=== PATIENT | female | born 1980 | race Caucasian/White ===

== ENCOUNTER 2020-12-14 14:53 | Inpatient (IN) ==
[2020-12-14] MEDS: NS 0.9% 1000 ml BAG 1,000 ML IV SCH ×2 (15:30→22:59)
[2020-12-14] MEDS ORDERED: Ondansetron 4 mg VIAL 2 MG/ML 2 ml VIAL IV PRN (16:29)
[2020-12-15 07:19] LABS: ABS Monocytes 1.5 10^3/ul (0-0.8); ABS Neutrophils 14.6 10^3/ul (1.5-7.7); Eosinophil % 0.1 %; Hematocrit 32 % (35-47); Hemoglobin 10.8 g/dL (12.0-16.0); Lymphocyte % 5.9 %; Mean Corpuscular HGB Conc 34 g/dL (31-36); Mean Corpuscular Hemoglobin 33 pg (27-31); Mean Corpuscular Volume 96 fL (80-97); Mean Platelet Volume 7.9 fL (7.4-10.4); Platelet Count 192 10^3/uL (150-450); Red Blood Count 3.33 10^6 /uL (3.70-4.87); Red Cell Distribution Width 13 % (10-15); White Blood Count 17.2 10^3/uL (3.5-10.8)
[2020-12-15] MEDS: NS 0.9% 1000 ml BAG 1,000 ML IV SCH ×3 (07:30→23:26)
[2020-12-15 07:34] LABS: Calcium 7.6 mg/dL (8.6-10.3); EGFR African American 112.7 (>60); EGFR Non-African American 93.2 (>60); Potassium 4.1 mmol/L (3.5-5.0)
[2020-12-15] MEDS: Polyethylene Glycol 3350 17 GM PACKET PO SCH ×2 (12:38→21:21)
[2020-12-15] MEDS ORDERED: cefTRIAXone 1 gm/50 mL NS BAG 1 GM/50 ML BAG IVPB SCH (13:00)
[2020-12-16 06:44] LABS: ABS Lymphocytes 1.3 10^3/ul (1.0-4.8); ABS Monocytes 1.1 10^3/ul (0-0.8); ABS Neutrophils 9.6 10^3/ul (1.5-7.7); Eosinophil % 0.2 %; Hematocrit 30 % (35-47); Hemoglobin 10.1 g/dL (12.0-16.0); Lymphocyte % 10.7 %; Mean Corpuscular HGB Conc 33 g/dL (31-36); Mean Corpuscular Hemoglobin 32 pg (27-31); Mean Corpuscular Volume 97 fL (80-97); Platelet Count 191 10^3/uL (150-450); Red Blood Count 3.13 10^6 /uL (3.70-4.87); Red Cell Distribution Width 14 % (10-15); White Blood Count 12.1 10^3/uL (3.5-10.8)
[2020-12-16 06:58] LABS: Albumin 2.6 g/dL (3.2-5.2); Calcium 7.4 mg/dL (8.6-10.3); Potassium 3.9 mmol/L (3.5-5.0); Total Bilirubin 0.3 mg/dL (0.2-1.0)
[2020-12-16 07:04] LABS: Albumin/Globulin Ratio 1.2 (1-3); EGFR Non-African American 103.3 (>60); Globulin 2.2 g/dL (2-4); Total Protein 4.8 g/dL (6.4-8.9)
[2020-12-16] MEDS: NS 0.9% 1000 ml BAG 1,000 ML IV SCH ×2 (07:14→15:31)
[2020-12-16] MEDS ORDERED: cefTRIAXone 1 gm/50 mL NS BAG 1 GM/50 ML BAG IVPB SCH (09:00)
[2020-12-16] MEDS: Polyethylene Glycol 3350 17 GM PACKET PO SCH ×2 (09:45→20:38)
[2020-12-16] MEDS: Amoxicillin/Clavul 500/125 TAB (Augmentin 500 mg tab) PO SCH ×2 (13:28→20:24)
[2020-12-16 23:50] LABS: ABS Lymphocytes 1.1 10^3/ul (1.0-4.8); ABS Monocytes 0.9 10^3/ul (0-0.8); Eosinophil % 0.4 %; Hematocrit 30 % (35-47); Hemoglobin 10.2 g/dL (12.0-16.0); Lymphocyte % 10.8 %; Mean Corpuscular HGB Conc 34 g/dL (31-36); Mean Corpuscular Hemoglobin 33 pg (27-31); Mean Corpuscular Volume 95 fL (80-97); Mean Platelet Volume 8.3 fL (7.4-10.4); Platelet Count 212 10^3/uL (150-450); Red Blood Count 3.12 10^6 /uL (3.70-4.87); Red Cell Distribution Width 13 % (10-15); White Blood Count 10.1 10^3/uL (3.5-10.8)
[2020-12-17] MEDS: Polyethylene Glycol 3350 17 GM PACKET PO SCH ×2 (09:08→20:44)
[2020-12-18] MEDS: Polyethylene Glycol 3350 17 GM PACKET PO SCH ×2 (14:37→20:46)
[2020-12-18] MEDS ORDERED: cefTRIAXone 2 GM ADDV.VIAL 2 GM in NS 0.9% 100 ml BAG 100 ML IV ONE (21:15)
[2020-12-19] MEDS: Polyethylene Glycol 3350 17 GM PACKET PO SCH (07:57)
[2020-12-19 08:26] VITALS: BP 117/57
== END 2020-12-19 11:00 | disposition home or self-care (01) | DRG 833 ==
LOC: MCHOBOUT 14:53 → MCHOB 15:16
PROVIDERS: ADMIT Obstetrics & Gynecology; ATTEND Obstetrics & Gynecology